=== PATIENT | female | born 1985 | race African-American/Black ===

== ENCOUNTER 2017-07-23 09:09 | Emergency (ER) | payer MEDICAID, OTHER ==
[~2017-07-23] VITALS: Ht 167.6 cm; Wt 68.0 kg
[2017-07-23 09:16] VITALS: BP 139/78
[2017-07-23] MEDS ORDERED: NACL 0.9% 1,000 ML IV SCH (12:18)
[2017-07-23] MEDS ORDERED: FAMOTIDINE 20 MG/2 ML VIAL IVP ONE (12:20)
[2017-07-23] MEDS ORDERED: MORPHINE SULFATE 4 MG/ML SYR IVP ONE (12:20)
[2017-07-23] MEDS ORDERED: ONDANSETRON 4 MG/2 ML VIAL IVP ONE (12:20)
[2017-07-23 12:43] LABS: BASOPHILS # (AUTO) 0.1 K/uL (0.00-0.22); BASOPHILS % (AUTO) 0.7 % (0.0-2.0); EOSINOPHILS # (AUTO) 0.3 K/uL (0-0.4); EOSINOPHILS % (AUTO) 3.6 % (0.0-4.0); HEMATOCRIT 34.6 % (36-48); HEMOGLOBIN 11.5 g/dL (12.0-16.0); LYMPHOCYTES # (AUTO) 2.2 K/uL (2.5-16.5); LYMPHOCYTES % (AUTO) 25.8 % (20.5-51.1); MEAN CORPUSCULAR HEMOGLOBIN 26 pg (27-31); MEAN CORPUSCULAR HGB CONC 33 g/dL (33-37); MEAN CORPUSCULAR VOLUME 76.5 fL (80-94); MONOCYTES # (AUTO) 0.6 K/uL (0.8-1.0); MONOCYTES % (AUTO) 6.6 % (1.7-9.3); NEUTROPHILS # (AUTO) 5.3 K/uL (1.8-7.7); NEUTROPHILS % (AUTO) 63.3 % (42.2-75.2); PLATELET COUNT (AUTO) 201 K/uL (140-450); RED BLOOD CELL COUNT(AUTO) 4.52 MIL/uL (4.20-5.40); RED CELL DISTRIBUTION WIDTH 15.9 % (11.6-13.7); WHITE BLOOD COUNT (AUTO) 8.5 K/uL (4.8-10.8)
[2017-07-23 12:50] LABS: APPEARANCE,URINE CLEAR (CLEAR); BILIRUBIN,URINE NEGATIVE (NEGATIVE); BLOOD, URINE NEGATIVE (NEGATIVE); LEUKOCYTE ESTERASE ,URINE NEGATIVE (NEGATIVE); NITRITE, URINE NEGATIVE (NEGATIVE); UGLUCOSE NEGATIVE (NEGATIVE)
[2017-07-23 12:55] LABS: COLOR,URINE STRAW (YELLOW)
[2017-07-23 12:57] LABS: ANION GAP 11.6 (8-16); CARBON DIOXIDE 27.3 mmol/L (21-32); CREATININE 0.8 mg/dL (0.6-1.3); POTASSIUM 3.9 mmol/L (3.5-5.1)
[2017-07-23 13:03] LABS: ALBUMIN 2.8 g/dL (3.4-5.0); TOTAL BILIRUBIN 0.3 mg/dL (0.0-1.0)
[2017-07-23 14:37] VITALS: BP 123/76
== END 2017-07-23 14:37 | disposition home or self-care (01) ==
LOC: MED 09:09
DX: R10.9 Unspecified abdominal pain (principal); R11.0 Nausea; R63.0 Anorexia; E11.9 Type 2 diabetes mellitus without complications; I10 Essential (primary) hypertension; Z90.49 Acquired absence of other specified parts of digestive tract
CPT/HCPCS: 36415; 74176; 80053; 81003; 81025; 83690; 84703; 85025; 96361; 96374; 96375; 99285; J2270; J2405; J3490; J7030